=== PATIENT | female | born 2000 | race Caucasian/White ===

== ENCOUNTER 2023-12-08 14:14 | Emergency (ER) | payer SELFPAY ==
[~2023-12-08] VITALS: Ht 177.8 cm; Wt 99.7 kg
[2023-12-08 14:39] VITALS: BP 138/88; PULSE 101; RESP 18; O2SAT 96
== END 2023-12-08 18:15 | disposition left against medical advice (07) ==
LOC: ER 14:14
DX: R10.2 Pelvic and perineal pain (principal); Z53.21 Procedure and treatment not carried out due to patient leaving prior to being seen by health care provider